=== PATIENT | male | born 1935 | race Hispanic/Latino ===

== ENCOUNTER 2017-08-25 09:45 | Day surgery (SDC) | payer MEDICARE, BC ==
[2017-08-12 13:26] VITALS: BMI 27.6
[2017-08-25] MEDS ORDERED: Midazolam 2 MG/2 ML VIAL ONE (11:54)
[2017-08-25] MEDS ORDERED: Naloxone 0.4 mg/ml Inj (Adult) ONE (11:55)
[2017-08-25] MEDS ORDERED: Flumazenil 0.1 mg/ml Inj (5ml) IVP ONE (11:55)
[2017-08-25] MEDS ORDERED: Midazolam 2 MG/2 ML VIAL IV ONE ×3 (12:06→12:11)
[2017-08-25] MEDS ORDERED: Sodium Chloride 0.9% 1,000 ML IV SCH (13:15)
[2017-08-25 14:18] VITALS: RESP 18; TEMP 98.3; O2SAT 94
[2017-08-25 15:40] VITALS: BP 167/84; PULSE 64
--- NOTE | 2017-08-25 16:16 | CARD ---
APPROVED REPORT EXAM: Transesophageal echocardiogram with color flow Doppler. INDICATION Aortic Vascular Disease M-Mode DIMENSIONS Aortic Root3.30 (2.2-3.7cm)Aortic Cusp Exc.1.70 (1.5-2.0cm) Aortic Valve MAXINE (VMAX)1.60cm2 Mitral Valve E/A ratio0.0 TDI E/Lateral E'0.0E/Medial E'0.0 Reason For Test : R/o IHSS, R/o , MR PROCEDURE After obtaining informed consent, patient underwent transesophageal echo in the Echo Lab. Type of Sedation : Conscious Sedation Sedation was administered by Dr. Mar. Sedation was achieved with Versed and , Fentanyl 3mg and 100 mcg intravenously. Transesophageal probe was inserted and advanced into esophagus without difficulty. Echo enhancement indication: R/O Septal defect. Echo enhancement agent administered: Agitated Saline The APRIL was performed without complications. Throughout the procedure, the blood pressure, pulse oximetry, cardiac rhythm, and rate were monitored. The patient tolerated the procedure without adverse effects. Recovery from conscious sedation was uneventful and vital signs were stable. LEFT VENTRICLE The left ventricle is normal size. There is moderate asymmetric left ventricular hypertrophy. IHSS Physiology with significany Tubulence in LVOT and Peak resting Gradient across LVOT 150 mmof Hg. and peak Velocity6.12 M/s The left ventricular function is normal.EF-65% There is normal LV segmental wall motion. The left ventricular diastolic function is normal. No left ventricle thrombus noted on this study. There is no ventricular septal defect visualized. There is no left ventricular aneurysm. There is no mass noted in the left ventricle. RIGHT VENTRICLE The right ventricle is normal size. There is normal right ventricular wall thickness. The right ventricular systolic function is normal. ATRIA The left atrium is mildly dilated. The right atrium size is normal. The interatrial septum is intact with no evidence for an atrial septal defect. AORTIC VALVE The aortic valve is moderately thickened. No aortic regurgitation is present. There is mild valvular aortic stenosis. MAXINE 1.6 cm2 by planimetry. AorticCusps separation -1.7 cm There is no aortic valvular vegetation. MITRAL VALVE The mitral valve leaflets are thickened. TYRA with Chordal TYRA noted , with peak resting gradient across LVOT 150 mmof Hg.and velocity 6.12 m/s There is no mitral valve stenosis. Mitral regurgitation is moderate. TRICUSPID VALVE The tricuspid valve is normal in structure. There is trace to mild tricuspid regurgitation. There is no tricuspid valve prolapse or vegetation. There is no tricuspid valve stenosis. PULMONIC VALVE The pulmonic valve is mildly thickened. There is trace pulmonic valvular regurgitation. There is no pulmonic valvular stenosis. GREAT VESSELS The aortic root is normal in size. The ascending aorta is normal in size. The pulmonary artery is normal. The IVC is normal in size and collapses >50% with inspiration. PERICARDIAL EFFUSION There is no pericardial effusion. There is no pleural effusion. <Conclusion> The left ventricle is normal size. The left ventricle is normal size. There is moderate asymmetric left ventricular hypertrophy. IHSS Physiology with significany Tubulence in LVOT and Peak resting Gradient across LVOT 150 mmof Hg. and peak Velocity6.12 M/s The left ventricular function is normal.EF-65% No aortic regurgitation is present. There is mild valvular aortic stenosis. MAXINE 1.6 cm2 by planimetry. TYRA with Chordal TYRA noted , with peak resting gradient across LVOT 150 mmof Hg.and velocity 6.12 m/s There is trace to mild tricuspid regurgitation. Velocity in AMISHA>0.4 m/s Mild Plaque in Descending aorta No PFO by color flow or Bubble study. Recommendation; Will Refer to Dr. Acuña at [facility] for Eval for Alcohol Septal Ablatation. Interim continue Beta Walter, Avoid Sternous Activity, and avoid Getting dehydrated Cc; DRs. Russell Dove / Jose Angel Sanders.
== END 2017-08-25 15:20 | disposition home or self-care (01) ==
LOC: TEE 09:45
PROVIDERS: ATTEND Internal Medicine Cardiovascular Disease
DX: I08.3 Combined rheumatic disorders of mitral, aortic and tricuspid valves (principal); I42.1 Obstructive hypertrophic cardiomyopathy; I10 Essential (primary) hypertension; I51.7 Cardiomegaly; I50.9 Heart failure, unspecified; I49.9 Cardiac arrhythmia, unspecified; I49.3 Ventricular premature depolarization
CPT/HCPCS: 93312; J2250; J3010; J7040

== ENCOUNTER 2018-05-29 06:55 | Day surgery (SDC) | payer MEDICARE, BC ==
[2018-05-23 16:18] VITALS: BMI 27.8
--- NOTE | 2018-05-27 02:42 | HP ---
REASON FOR ADMISSION: Left heart cath, possible angioplasty, abnormal stress test, history of PTCA of LAD, history of IHSS, alcohol ablation. BRIEF CLINICAL HISTORY: This is an 82-year-old male with a past medical history significant for IHSS, status post septal alcohol ablation in 12/[address] Aucña, history of PTCA of LAD after alcohol septal ablation, complaining of near syncope and shortness of breath, dyspnea on exertion. The patient underwent a stress test that is abnormal. The patient is scheduled for elective cardiac cath and possible angioplasty. PAST MEDICAL HISTORY: Significant for COPD, IHSS, status post alcohol septal ablation in 12/2017, history of PTCA after alcohol septal ablation. RECENT CARDIAC WORKUP: Patient had a cardiac nuclear stress test dated 05/08/2018, that revealed essentially normal myocardial perfusion, fixed , most likely diaphragmatic attenuation. The patient complaining of chest pain and shortness of breath. The patient underwent echocardiography on 05/08/2018, that showed proximal septal thickening noted with IHSS physiology, but peak resting gradient 9 mmHg. Left ventricular function is normal, aortic stenosis mild, [id number] mitral regurgitation and [id number] tricuspid regurgitation. As mentioned, the patient has a proximal septal thickening with IHSS physiology with peak resting gradient 9 mmHg. SOCIAL HISTORY: Denies smoking. Denies any history of alcohol abuse. CURRENT MEDICATIONS: Patient is taking acetaminophen, Plavix 75 mg daily, omega-3 fish oil, metoprolol, biotin, atorvastatin. REVIEW OF SYSTEMS: As per HPI. PHYSICAL EXAMINATION: GENERAL: Height of the patient is 5 feet 4 inches, weight of the patient is 162 pounds, body mass index 27.8 kg/m2. VITAL SIGNS: Temperature afebrile, heart rate 63, blood pressure 130/70. HEENT: PERRLA. Extraocular muscles intact. NECK: Supple. No carotid bruits or thyromegaly. CHEST: Clear to auscultation. HEART: S1 and S2, regular. ABDOMEN: Soft. EXTREMITIES: Clubbing and cyanosis negative. LABORATORY DATA: Blood workup pending. IMPRESSION AND PLAN: An 82-year-old male with a past medical history significant for idiopathic hypertrophic subaortic stenosis, status post alcohol septal ablation by Dr. Yasmani Acuña at [facility] in 12/2017, history of percutaneous transluminal coronary angioplasty of left anterior descending in 12/2017, complaining of chest pain, underwent a stress test. The patient developed chest pain because of the stress test, though nuclear scan was negative, thought to be abnormal stress test by Dr. Sanders. History of cerebrovascular accident, unsteady gait on walking, hematuria episode, was on Brilinta that was stopped and changed to Plavix, history of hypertension, hyperlipidemia. The patient was recommended a cardiac catheterization. We will do the cardiac catheterization and give further recommendation after the cardiac catheterization. The patient was seen by Dr. Sanders and he mentioned that getting chest pain like tightness in the chest on exertion along with associated shortness of breath, so thought to be the false negative stress test, so the patient is scheduled for cardiac catheterization, possible angioplasty. Thank you Dr. Dove for providing us the opportunity in taking care of patient, Rich Ignacio. Jimmie Mar MD cc: MD Sebastian Butterfield
[2018-05-29 07:48] LABS: BASO # 0.01 K/mm3 (0.0-2.0); BASO % 0.1 % (0.0-3.0); EOS # 0.2 (0.0-0.7); EOS % 2.3 % (1.5-5.0); GRAN # 4.52 (1.4-6.5); GRAN % 65.2 % (50.0-68.0); HEMOGLOBIN 15.8 g/dL (14.0-18.0); LYMPH # 1.6 (1.2-3.4); LYMPH % 22.7 % (22.0-35.0); MEAN CELL VOLUME 82.4 fl (80.0-105.0); MEAN CORPUSCULAR HEMOGLOBIN 27.9 pg (25.0-35.0); MEAN CORPUSCULAR HGB CONC 33.8 g/dl (31.0-37.0); MEAN PLATELET VOLUME 10.1 fl (7.0-11.0); MONO # 0.7 (0.1-0.6); MONO % 9.7 % (1.0-6.0); RBC 5.67 10^6/uL (3.5-6.1); RED CELL DISTRIBUTION WIDTH 14.3 % (11.5-14.5); WHITE BLOOD COUNT 6.9 10^3/ul (4.5-11.0)
[2018-05-29 07:51] VITALS: RESP 18; TEMP 98.1
[2018-05-29 07:54] LABS: INR 1.13; PARTIAL THROMBOPLASTIN TIME 32.2 Seconds (25.1-36.5)
[2018-05-29 07:58] LABS: BLOOD UREA NITROGEN 22 mg/dL (7-21); CALCIUM 9.2 mg/dL (8.4-10.5); GFR NON-AFRICAN AMERICAN > 60; HDL CHOLESTEROL 30 mg/dL (29-60)
[2018-05-29 08:09] LABS: LDL CHOLESTEROL 56 mg/dL (0-129)
[2018-05-29] MEDS ORDERED: Lidocaine 2% PF (10 ml) Amp ONE (09:07)
[2018-05-29] MEDS ORDERED: Phenylephrine 10 mg/ml Inj ONE (09:07)
[2018-05-29] MEDS ORDERED: Iodixanol 320 MG/ML 100 ML BOTTLE IV ONE (09:08)
[2018-05-29] MEDS ORDERED: Iodixanol 320 MG/ML 200 ML BOTTLE IV ONE (09:08)
[2018-05-29] MEDS ORDERED: Iohexol 350mgl/ml 50 ML ONE (09:08)
[2018-05-29] MEDS ORDERED: Nitroglycerin 50mg in D5W 0 MG/0 ML BOTTLE IV ONE (09:09)
[2018-05-29] MEDS ORDERED: Midazolam 2 MG/2 ML VIAL ONE (09:39)
[2018-05-29] MEDS ORDERED: Sodium Chloride 0.9% 1,000 ML IV SCH (10:45)
--- NOTE | 2018-05-29 11:02 | CARD ---
APPROVED REPORT Date of service: 05/29/2018 EKG Measurement Heart [id number] <Conclusion> Sinus bradycardia Nonspecific ST-T changes prolonged QT Abnormal ECG
--- NOTE | 2018-05-29 11:15 | CPOSTOP ---
DATE: 05/29/2018 CARDIOVASCULAR LAB POST PROCEDURE NOTE DICTATING PHYSICIAN: Jimmie Mar MD. BLOCK SPLITTER OPERATOR: SAHRA Muhammad. TYPE OF ANESTHESIA: Moderate conscious sedation. Total 1 mg of Versed, 50 of fentanyl. PRE-PROCEDURE DIAGNOSES: Unstable angina, history of coronary artery disease, shortness of breath, chest pain, abnormal stress test. PROCEDURE PERFORMED: Left and right heart catheterization. FINDINGS: 1. Patent stent in the LAD. 2. No gradient across LV cavity noted. History of alcohol septal ablation in the past. No aortic stenosis. Mild pulmonary hypertension. FINAL DIAGNOSES: Mild pulmonary hypertension, patent stent in the left anterior descending. No evidence of residual idiopathic hypertrophic subaortic stenosis. POST PROCEDURE CONDITION: Post procedure, the patient's condition is stable. VASCULAR ACCESS SITE: Right femoral artery, right femoral vein. CLOSURE DEVICE: Mynx for artery and vein. TOTAL RADIATION DOSE: [id number]. FLUORO TIME: 4.6 minutes. Jimmie Mar MD
[2018-05-29 15:12] VITALS: BP 165/71; PULSE 61; O2SAT 98
--- NOTE | 2018-05-29 16:10 | CARD ---
APPROVED REPORT Date of service: 05/29/2018 Procedure(s) performed: Complete Heart Catheterization HISTORY The patient is a 82 year-old male with a history of : most recent EF: 64%. (EF Method: RADIONUCLIDE), previous CVA , previous diagnostic cath, previous PCI (The PCI date was 01/16/2018), hypertension , dyslipidemia , s/p PTCA of LAD and Aocohol Septal ablation for IHSS , admitted for Cardiac cath b/c of C/o increasing SOB on mimimal activity, chest pain, dizzyness and abnormal stress test ( stress portion, though nuclear scan was negative for ischemia). INDICATION The indication(s) include : positive stress test. CASE TECHNIQUE The patient was brought electively to the Cardiac Catheterization Laboratory in a fasting state and was prepped and draped in a sterile manner. The right femoral groin was infiltrated with 2% Lidocaine subcutaneous anesthesia. A 6 Fr x 11 cm Mitzy sheath was inserted into the right femoral artery without difficulty. Coronary angiography was performed using coronary diagnostic catheters. The left coronary system was accessed and visualized with a Diagnostic , 6F JL4 CATH DXT 100 CM catheter. The right coronary system was accessed and visualized with a Diagnostic ,6F JR 4 CATH DXT 100 CM catheter. The left ventricle was accessed and visualized with a 6F PIGTAIL 145 CATH DXT 110 CM catheter. Left ventricular/Aortic Valve gradient assessed on pullback. Left ventriculogram was performed in BENJAMIN projection. Closure device was deployed with a 6 Fr / 7 Fr MynxGrip without any complications. The patient tolerated the procedure well and there were no complications associated with the procedure. Vessel Analysis The patient's coronary anatomy is right dominant. The left main coronary artery is a medium size vessel without significant stenosis. The left main bifurcates to the left anterior descending and circumflex. The left anterior descending artery is a medium size vessel with diffuse calcification noted throughout this vessel and without significant stenosis. p[atent stent in mid segment There is a 20% stenosis in the proximal segment. The first diagonal branch is a large size vessel with diffuse calcification noted throughout this vessel and without significant stenosis. The circumflex artery is a medium size vessel with diffuse calcification noted throughout this vessel and without significant stenosis. There is a 55-60% stenosis in the distal segment. proximal Cx has 40-50% stenosis The first obtuse marginal branch is a medium size vessel with diffuse calcification noted throughout this vessel and without significant stenosis. The second obtuse marginal branch is a large size vessel with diffuse calcification noted throughout this vessel and without significant stenosis. The right coronary artery is a large size vessel with diffuse calcification noted throughout this vessel and without significant stenosis. The right posterior descending artery is a large size vessel without significant stenosis. The right posterolateral branch is a medium size vessel . Left Ventricle The left ventricle is Borderline in size with normal contractility. There was no cardiomyopathy. The left ventricular ejection fraction is estimated to be 55-60%. The left ventricular end diastolic pressure is 18 mmHg. There was no gradient across the aortic valve upon pullback. No gradient noted in Mid cavity on pulling with end hole cartheter ( MP 1 ) Right Heart Cath Findings The Right Atrial Pressure is 6-8 mmHg. The Right Ventricular Pressure is 45/13 mmHg. The Pulmonary Artery Pressure is 45/22 mmHg. with a mean of 26-27 The Pulmonary Catheter Wedge Pressure is 18 mmHg. PVR 2.5 Wood units. The cardiac output and index were assessed using thermo dilution. The Cardiac Output is 3.17 L/min. The Cardiac index is 1.77 L/min/m2. Conclusion Non Obstructive CAD, Patent stent in Mid LAD. No Intra cavtiy gradient in LV on Pulling back with End Hole Catheter( MP1). S/p Alcohol septal Ablation for IHSS. Preserved LV FX. EF-55-60%, EDP_18-20 mmof Hg. RHS; RA-6-8, RV-45/43, PA-45/22 with a mean of 26-27. PCW-18 mmof Hg, CO-3.77, CI-1,77, PVR-2.5 hairston unit. Recommendations Cardiac Rehabilitation Referral Aggressive Medical TherapyCardiac Risk Reduction Program Cc; drs. Derrell Wells / Tommy
== END 2018-05-29 16:25 | disposition home or self-care (01) ==
LOC: CATH 06:55
PROVIDERS: ATTEND Internal Medicine Cardiovascular Disease
DX: I25.110 Atherosclerotic heart disease of native coronary artery with unstable angina pectoris (principal); I42.1 Obstructive hypertrophic cardiomyopathy; I08.3 Combined rheumatic disorders of mitral, aortic and tricuspid valves; I10 Essential (primary) hypertension; E78.5 Hyperlipidemia, unspecified; I27.20 Pulmonary hypertension, unspecified; Z86.73 Personal history of transient ischemic attack (TIA), and cerebral infarction without residual deficits
CPT/HCPCS: 36415; 80048; 80061; 85025; 85610; 85730; 86850; 86900; 93005; 93460; 99152; 99153; C1760; C1769 ×2; C1894; C2629; J1644; J1940; J2250; J3010; J7030; J7040; Q9966